=== PATIENT | male | born 1960 | race Two or more races ===

== ENCOUNTER 2023-10-02 20:45 | Emergency (ER) | payer OTHER ==
[~2023-10-02] VITALS: Ht 172.7 cm; Wt 67.0 kg
[2023-10-02 21:05] VITALS: BP 122/66; PULSE 98; RESP 16; TEMP 97.6; O2SAT 97
[2023-10-02] MEDS: LIDOCAINE 1% HCL (LOCAL ANESTH.) INJ 20ML MDV ID ONE (22:06)
== END 2023-10-02 22:52 | disposition home or self-care (01) ==
LOC: ER 20:45
DX: S51.811A Laceration without foreign body of right forearm, initial encounter (principal); I10 Essential (primary) hypertension; W18.09XA Striking against other object with subsequent fall, initial encounter; Y93.89 Activity, other specified; Y92.89 Other specified places as the place of occurrence of the external cause; Y99.8 Other external cause status
CPT/HCPCS: 12004